=== PATIENT | female | born 1985 | race Caucasian/White ===

== ENCOUNTER 2021-01-29 12:04 | Emergency (ER) | payer OTHER ==
[~2021-01-29] VITALS: Ht 157.5 cm; Wt 127.0 kg
[2021-01-29] MEDS ORDERED: [UNRECOGNIZED DRUG - OTHER] (12:22)
[2021-01-29] MEDS ORDERED: BUTALB-APAP-CA1 EACH PO (12:28)
[2021-01-29 12:49] VITALS: BP 138/87
== END 2021-01-29 12:49 | disposition home or self-care (01) ==
LOC: M.ERS 12:04
DX: G43.909 Migraine, unspecified, not intractable, without status migrainosus (principal); Z79.899 Other long term (current) drug therapy; Z88.8 Allergy status to other drugs, medicaments and biological substances